=== PATIENT | female | born 1970 | race Caucasian/White ===

== ENCOUNTER → 2017-09-16 | Emergency (ER) | payer BC, OTHER ==
[~2017-09-16] VITALS: Ht 157.5 cm; Wt 123.4 kg
[~2017-09-16] MED LIST: ACETAMINOPHEN 500 MG TAB (TYLENOL) PO STA; ACHD5005 PO; ACYC400T PO; LD5O35 TP; LEVO112T55 PO; LITH300T3 PO; METF500T4 PO; METR500T21 PO; OLAN1CAP PO; PRAV40TA2 PO
--- NOTE | 2017-09-16 16:58 | ED GU-Female ---
General Chief Complaint: -Female Stated Complaint: VAGINAL PAIN Source: patient Exam Limitations: no limitations History of Present Illness Date Seen by Provider: Sep 16, 2017 Time Seen by Provider: 16:35 Initial Comments Here with report of vaginal pain after vigorous sexual activity a few days ago. Denies discharge but states that it hurts to urinate. Seen at [facility] and started on Macrobid for dysuria and she is taking that as prescribed. Has not been taking any pain. She has been using diaper rash cream /powder. This has not helped specifically. Denies significant vaginal discharge. This is a stable partner. Timing/Duration: getting worse, other (a few days ago) Severity/Quality: burning Location: vaginal, urethral Radiation: none Activities at Onset: sexual activity Sexual Ono History: less than 2 months ago, single partner Modifying Factors: Worsens With Urinating Associated Symptoms: No dysuria, fever/chills Allergies and Home Medications Allergies Coded Allergies: No Allergy Information Available (Unverified , 06/30/16) Home Medications Levothyroxine Sodium 112 Mcg Tablet, 112 MCG PO DAILY, (Reported) Wever Carbonate 300 Mg Tablet, 600 MG PO BID, (Reported) Olanzapine/Fluoxetine HCl 1 Each Capsule, 1 EACH PO HS, (Reported) Pravastatin Sodium 40 Mg Tablet, 40 MG PO HS, (Reported) Constitutional: see HPI, fever EENTM: no symptoms reported Respiratory: no symptoms reported Cardiovascular: no symptoms reported Genitourinary: see HPI, burning, pain Psychiatric/Neurological: No Symptoms Reported Past Evbyndd-Itvxst-Vyrxcp Hx Patient Social History Alcohol Use: Denies Use Recreational Drug Use: No Smoking Status: Never a Smoker Former Smoker, Quit: Jul 07, 1996 Recent Foreign Travel: No Contact w/Someone Who Travel: No Surgeries History of Surgeries: Yes Surgeries: Abdominal, Orthopedic Respiratory History of Respiratory Disorde: No Cardiovascular History of Cardiac Disorders: No Neurological History of Neurological Disord: No Endocrine History of Endocrine Disorders: Yes Endocrine Disorders: Hypothyroidsim, Diabetes, Non-Insulin dep Reviewed Nursing Assessment Reviewed/Agree w Nursing PMH: Yes Physical Exam Vital Signs Capillary Refill : General Appearance: WD/WN, mild distress (pain related) Cardiovascular: regular rate, rhythm, no murmur Respiratory: lungs clear, normal breath sounds Pelvic: other (perivaginal area reddened. Introitus area and labia reddened. Question small tear superiorly at the vaginal opening. Very tender on palpation.) Neurologic/Psychiatric: alert, oriented x 3 Skin: normal color, warm/dry Progress/Results/Core Measures Suspected Sepsis SIRS Temperature: Pulse: Respiratory Rate: Blood Pressure / Mean: Results/Orders My Orders Orders - KANU GUPTA MD Acetaminophen Tablet (Tylenol Tablet) (09/16/17 16:48) Vital Signs/I&O Capillary Refill : Progress Note : Progress Note Seen and evaluated. Unable to do complete pelvic exam as patient is very tender. There does appear to be a small tear. Tylenol 500 mg by mouth. We will initiate Flagyl. I will prescribe pain medicine due to the significant irritation. Discussed outpatient options. Discharged home with return precautions. Patient verbalize understanding instructions and agreement with plan. Departure Impression Impression: Primary Impression: Superficial injury of vagina without infection Qualified Codes: S30.95XA - Unspecified superficial injury of vagina and vulva , initial encounter Disposition: HOME, SELF-CARE Condition: Stable Departure-Patient Inst. Decision time for Depature: 17:02 Referrals: MACARIO AG MD (PCP/Family) Primary Care Physician Patient Instructions: Dyspareunia (Painful Sex) Add. Discharge Instructions: All discharge instructions reviewed with patient and/or family. Voiced understanding. You appear to have irritation to the vaginal tissue. You may use topical anesthetic such as Vagisil and you may also vincent with the tissue with ointment such as Vaseline. You may take pain medicine prescribed as needed for pain. If you're not taking the prescribed pain medicine you may take Tylenol ( acetaminophen) 1000 mg every 6 hours as needed for pain. To not take both prescribed pain medicine and the Tylenol/acetaminophen at the same time as they both have acetaminophen in them. If you're having difficulty with urination, you may urinate while showering or with running water flowing over the vaginal area which will decrease the burning sensation. Follow-up with your doctor next week for recheck and further evaluation. Return for worse pain, fever, vomiting, weakness, breathing problems or other concerns as needed. Scripts Metronidazole (Metronidazole) 500 Mg Tablet 500 MG PO BID, #14 TAB 0 Refills Prov: KANU GUPTA MD 09/16/17 Hydrocodone Bit/Acetaminophen (Hydrocodone/Acetaminophen 5/325mg Tablet) 1 Tab Tab 1 EACH PO Q6H Y for PAIN-MODERATE, #15 TAB 0 Refills Prov: KANU GUPTA MD 09/16/17 KANU GUPTA MD Sep 16, 2017 16:58
[2017-09-16 17:20] VITALS: BP 115/80
== END | disposition home or self-care (01) ==
LOC: EDUNIT# 16:08 → ER 16:10
DX: S30.95XA Unspecified superficial injury of vagina and vulva, initial encounter (principal); E03.9 Hypothyroidism, unspecified; E11.9 Type 2 diabetes mellitus without complications; Z87.891 Personal history of nicotine dependence; Z98.890 Other specified postprocedural states; X58.XXXA Exposure to other specified factors, initial encounter
CPT/HCPCS: 99283

== ENCOUNTER 2017-09-19 08:35 | Emergency (ER) | payer BC ==
[~2017-09-19] VITALS: Ht 157.5 cm; Wt 113.9 kg
[~2017-09-19 08:35] MED LIST changes: -ACETAMINOPHEN 500 MG TAB (TYLENOL) PO STA; -ACYC400T PO; -LD5O35 TP
[2017-09-19] MEDS ORDERED: LIDOCAINE UROJET 2% GEL 10 ML PKG ONE (10:08)
[2017-09-19] MEDS ORDERED: LIDOCAINE UROJET 2% GEL 10 ML PKG TOP ONE (10:30)
[2017-09-19] MEDS ORDERED: AZITHROMYCIN 250 MG TAB (ZITHROMAX) PO ONE (10:30)
[2017-09-19] MEDS ORDERED: LIDOCAINE 1% INJ 20 ML (XYLOCAINE) VIAL INJ ONE (10:30)
[2017-09-19] MEDS ORDERED: cefTRIAXone 1 GM (ROCEPHIN) VIAL IM ONE (10:30)
[2017-09-19] MEDS ORDERED: LIDOCAINE 1% INJ 50 ML (XYLOCAINE) VIAL ONE (10:33)
--- NOTE | 2017-09-19 11:12 | ED GU-Female ---
General Chief Complaint: -Female Stated Complaint: VAG INFECTION Nursing Triage Note: ARRIVED VIA AMB TO ROOM 09. WAS SEEN ON TUESDAY AFTER ROUGH SEX AND CONTINUES TO HAVE PAIN. STATES SHE FEELS LIKE SOMETHING IS UP HER VAGINA THAT IS EXPANDING BUT STATES NOTHING FOREIGN WAS PUT INSIDE. WANTS A FULL EXAM. STATES THE PAIN MED THAT WAS PRESCRIBED IS NOT HELPING. Nursing Sepsis Screen: No Definite Risk Source: patient Exam Limitations: no limitations History of Present Illness Date Seen by Provider: Sep 19, 2017 Time Seen by Provider: 09:00 Initial Comments This 47-year-old woman presents to the emergency room with complaints of pelvic pain after having rough intercourse several days ago. She is having continuous mild bleeding and pain is persistent. Her last menstrual period was about 2 months ago. She has been told she cannot get due to endometriosis and PCOS. She has odor and a clear pink discharge. Her labia feel swollen. Her fianc is a new partner to her with whom she has been sexually active for about 4 months. Allergies and Home Medications Allergies Coded Allergies: Sulfa (Sulfonamide Antibiotics) (Verified Allergy, Severe, hives, 09/19/17) Home Medications Acyclovir 400 Mg Tablet, 400 MG PO TID, #30 Prescribed by: MARIA ALEJANDRA RAHMAN on 09/19/17 1115 Hydrocodone Bit/Acetaminophen 1 Tab Tab, 1 EACH PO Q6H PRN for PAIN-MODERATE, # 15 Ref 0 Prescribed by: KANU GUPTA on 09/16/17 1707 Levothyroxine Sodium 112 Mcg Tablet, 112 MCG PO DAILY, (Reported) Lidocaine HCl 35 Gm Oint, 35 GM TP QID PRN for PAIN-MODERATE TO SEVERE, #1 May substitute 60 ML bottle viscous lidocaine Prescribed by: MARIA ALEJANDRA RAHMAN on 09/19/17 1115 Mcewen Carbonate 300 Mg Tablet, 600 MG PO BID, (Reported) Metronidazole 500 Mg Tablet, 500 MG PO BID, #14 Ref 0 Prescribed by: KANU GUPTA on 09/16/17 1707 Olanzapine/Fluoxetine HCl 1 Each Capsule, 1 EACH PO HS, (Reported) Pravastatin Sodium 40 Mg Tablet, 40 MG PO HS, (Reported) Constitutional: no symptoms reported EENTM: no symptoms reported Respiratory: no symptoms reported Cardiovascular: no symptoms reported Gastrointestinal: no symptoms reported Genitourinary: see HPI : No Musculoskeletal: no symptoms reported Skin: see HPI Psychiatric/Neurological: No Symptoms Reported Endocrine: No Symptoms Reported Past Bpwwuef-Wdpwft-Okkgkp Hx Patient Social History Alcohol Use: Denies Use Recreational Drug Use: No Former Smoker, Quit: Jul 07, 1996 2nd Hand Smoke Exposure: No Recent Foreign Travel: No Contact w/Someone Who Travel: No Recent Infectious Disease Expo: No Recent Hopitalizations: No Immunizations Up To Date Tetanus Booster (TDap): Less than 5yrs Surgeries History of Surgeries: Yes Surgeries: Abdominal, Orthopedic Respiratory History of Respiratory Disorde: No Cardiovascular History of Cardiac Disorders: No Neurological History of Neurological Disord: No Reproductive System : No Female Reproductive Disorders: Endometriosis, Polycystic Ovarian Dis Genitourinary History of Genitourinary Disor: No Gastrointestinal History of Gastrointestinal Di: No Musculoskeletal History of Musculoskeletal Dis: No Endocrine History of Endocrine Disorders: Yes Endocrine Disorders: Hypothyroidsim, Diabetes, Non-Insulin dep HEENT History of HEENT Disorders: No Cancer History of Cancer: No Psychosocial History of Psychiatric Problem: Yes Behavioral Health Disorders: Bipolar, Depression Physical Exam Vital Signs Vital Signs - First Documented 09/19/17 08:40 Temp 98.0 Pulse 86 Resp 18 B/P (MAP) 137/93 (108) Pulse Ox 96 O2 Delivery Room Air Capillary Refill : Less Than 3 Seconds General Appearance: no apparent distress, mild distress HEENT: normal ENT inspection Respiratory: no respiratory distress Gastrointestinal: non tender, soft Genital/Rectal: other (Labia are swollen and edematous bilaterally with widespread shallow ulcerations. The entire genital area is very tender to the touch. 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, no motor/sensory deficits, alert, normal mood/affect, oriented x 3 Skin: normal color, warm/dry, other (See above) Progress/Results/Core Measures Suspected Sepsis Recent Fever Within 48 Hours: No Infection Criteria Present: None New/Unexplained Altered Menta: No Sepsis Screen: No Definite Risk Sepsis Diagnosis: SIRS Temperature:98.0 Pulse: 86 Respiratory Rate: 18 Blood Pressure 137 /93 Mean: 108 Results/Orders Lab Results Laboratory Tests Test 09/19/17 10:24 Range/Units Micro Results Microbiology 09/19/17 Genital Culture - Preliminary, Resulted No growth 09/19/17 ARIEL Preparation - Final, Resulted 09/19/17 Wet Prep - Final, Resulted My Orders Orders - MARIA ALEJANDRA CLAROS MD Wet Prep (09/19/17 09:18) Neisseria Gonorrhea Dna (09/19/17 09:18) Chlamydia Dna (09/19/17 09:18) Genital Culture (09/19/17 09:18) Ariel Prep (09/19/17 09:18) Lidocaine 2% (Urojet) (Xylocaine Urojet) (09/19/17 10:08) Herpes Simplex Culture (09/19/17 10:20) Lidocaine 2% (Urojet) (Xylocaine Urojet) (09/19/17 10:30) Ceftriaxone Injection (Rocephin Injectio (09/19/17 10:30) Lidocaine 1% Injection (Xylocaine 1% Inj (09/19/17 10:30) Azithromycin Tablet (Zithromax Tablet) (09/19/17 10:30) Lidocaine 1% (Xylocaine 1%) (09/19/17 10:33) Medications Given in ED Vital Signs/I&O Capillary Refill : Less Than 3 Seconds Blood Pressure Mean: 108 Progress Note : Progress Note Patient's history and a genital exam is consistent with primary HSV outbreak. STD screening was performed with a vaginal culture, GC and chlamydia screening, and viral culture. Exam with speculum could not be performed as patient could not tolerate the pain even after topical lidocaine was applied and Urojet was injected into the vaginal opening. Specimens were therefore vaginal swabs instead of cervical swabs. Patient was empirically treated with Rocephin and azithromycin. Patient was unable to urinate for us in the emergency room. Departure Impression Impression: Primary Impression: Genital herpes Qualified Codes: A60.04 - Herpesviral vulvovaginitis Additional Impression: Vaginitis Qualified Codes: N76.0 - Acute vaginitis Disposition: 01 HOME, SELF-CARE Condition: Improved Departure-Patient Inst. Decision time for Depature: 11:05 Referrals: MACARIO AG MD (PCP/Family) Primary Care Physician Patient Instructions: Genital Herpes Add. Discharge Instructions: Use your acyclovir as prescribed. You may use the lidocaine gel topically to numb the burning. Follow-up with Dr. Ag in 1-2 weeks. Review your final vaginal cultures with her at that time. Return to care sooner if you are having worsening symptoms or other problems. Complete vaginal rest including abstaining from intercourse, use of tampons, etc. until you are cleared by Dr. Ag. All discharge instructions reviewed with patient and/or family. Voiced understanding. Scripts Lidocaine HCl (Lidocaine) 35 Gm Oint 35 GM TP QID Y for PAIN-MODERATE TO SEVERE, #1 TUBE May substitute 60 ML bottle viscous lidocaine Prov: MARIA ALEJANDRA CLAROS MD 09/19/17 Acyclovir (Acyclovir) 400 Mg Tablet 400 MG PO TID, #30 TAB Prov: MARIA ALEJANDRA CLAROS MD 09/19/17 Copy Copies To 1: MACARIO AG MD, JOSHUA T MD Sep 19, 2017 11:11
[2017-09-19] MEDS ORDERED: LD5O35 TP (11:15)
[2017-09-19] MEDS ORDERED: ACYC400T PO (11:15)
[2017-09-19 11:21] VITALS: BP 137/93
== END 2017-09-19 11:21 | disposition home or self-care (01) ==
LOC: EDUNIT# 08:35 → ER 08:37
DX: A60.04 Herpesviral vulvovaginitis (principal); F41.9 Anxiety disorder, unspecified; F32.9 Major depressive disorder, single episode, unspecified; E03.9 Hypothyroidism, unspecified; E11.9 Type 2 diabetes mellitus without complications; Z87.891 Personal history of nicotine dependence; Z88.2 Allergy status to sulfonamides
CPT/HCPCS: 36415; 87070; 87210; 87254; 87491; 87591; 99284

== ENCOUNTER 2021-05-11 06:05 | Emergency (ER) | payer OTHER ==
[~2021-05-11] VITALS: Ht 158 cm; Wt 127.0 kg
[~2021-05-11 06:05] MED LIST changes: +ACYC400T21 PO; +LD5O35 TP; +METF-397 PO; -METF500T4 PO; +METR-145 PO; -METR500T21 PO
[2021-05-11] MEDS ORDERED: LEVO175T58 (06:14)
[2021-05-11] MEDS ORDERED: LACTATED RINGERS 1,000 ML IV ONE (06:15)
[2021-05-11] MEDS ORDERED: ONDANSETRON 4 MG/2 ML (SDV) Z0FRAN IVP ONE ×2 (06:15→07:45)
--- NOTE | 2021-05-11 06:20 | ED Abdominal Pain ---
General Chief Complaint: Abdominal/GI Problems Stated Complaint: ABD PAIN Source of Information: Patient History of Present Illness Date Seen by Provider: May 11, 2021 Time Seen by Provider: 06:04 Initial Comments PT ARRIVES VIA EMS FROM HOME C/O RIGHT SIDED ABDOMINAL PAIN SINCE 2300 LAST PM PAIN IS CONSTANT NO RADIATION OF PAIN HAS HAD NAUSEA, NO VOMITING HAS BEEN CONSTIPATED, HAD A BM AT 0100 THIS AM LAST VOID WAS 1999 LAST PM, BUT DID NOT HAVE PAIN WITH URINATION NO FEVER TOOK TYLENOL AT 0200 AND IT HELPED EMS GAVE 100 MCG FENTANYL AND 4 MG ZOFRAN LMP --END OF , HAS IUD IN PLACE PT HAS HAD X 1 AND GASTRIC BYPASS SURGERY DENIES PRIOR ABDOMINAL PAIN OR GI PROBLEMD DENIES ANY CHRONIC ILLNESSES AND ONLY TAKES ANTI-DEPRESSANT 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: 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 [place] Allergies and Home Medications Allergies Coded Allergies: Sulfa (Sulfonamide Antibiotics) (Verified Allergy, Unknown, 05/11/21) Patient Home Medication List Home Medication List Reviewed: Yes Hydrocodone Bit/Acetaminophen (HYDROcodone/APAP 7.5/325 TAB) 1 Ea Tablet, 1 EA PO Q4-6 PRN for PAIN Prescribed by: RICHY MACK on 05/11/21745 Ketorolac Tromethamine (Ketorolac Tromethamine) 10 Mg Tablet, 10 MG PO Q6H Prescribed by: RICHY MACK on 05/11/21745 Levofloxacin (Levofloxacin) 500 Mg Tablet, 500 MG PO DAILY Prescribed by: RICHY MACK on 05/11/21745 Levothyroxine Sodium (Euthyrox) 175 Mcg Tablet, (Reported) Entered as Reported by: ANUPAMA BERMAN on 05/11/21613 Last Action: New Order Ondansetron (Ondansetron Odt) 8 Mg Tab.rapdis, 8 MG PO Q4H PRN for NAUSEA/VOMITING Prescribed by: RICHY MACK on 05/11/21745 Tamsulosin HCl (Flomax) 0.4 Mg Cap, 0.4 MG PO DAILY Prescribed by: RICHY MACK on 05/11/21745 Review of Systems Review of Systems Constitutional: no symptoms reported Respiratory: No Symptoms Reported Cardiovascular: No Symptoms Reported Gastrointestinal: See HPI, Abdominal Pain, Constipated, Nausea; Denies Vomiting Genitourinary: No Symptoms Reported; Denies Burning, Denies Flank Pain Musculoskeletal: no symptoms reported; No back pain Skin: no symptoms reported; No rash Psychiatric/Neurological: No Symptoms Reported Endocrine: No Symptoms Reported Hematologic/Lymphatic: No Symptoms Reported Past Wjqrsem-Epbikq-Estmlz Hx Patient Social History Tobacco Use?: Yes Smoking Status: Former Smoker Substance use?: Yes Substance type: Marijuana Additional substance use comme: THC IN PAST Alcohol Use?: Yes Immunizations Up To Date Second COVID19 Vaccination Rayshawn: AUGUST 2020 COVID19 Vaccine Cable 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: Prepair Past Medical History Surgery/Hospitalization HX: GASTRIC BYPASS--DONE IN [place] X 1 Surgeries: Yes Abdominal, Section Respiratory: No Cardiac: No Neurological: No : No Reproductive Disorders: 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 oz. 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, no motor/sensory deficits, alert, normal mood/affect, oriented x 3 Skin: normal color, warm/dry; No rash Progress/Results/Core Measures Results/Orders Lab Results Laboratory Tests Test 05/11/21 06:11 05/11/21 06:42 Range/Units White Blood Count 8.2 4.3-11.0 10^3/uL Red Blood Count 4.68 3.80-5.11 10^6/uL Hemoglobin 13.3 11.5-16.0 g/dL Hematocrit 41 35-52 % Mean Corpuscular Volume 87 80-99 fL Mean Corpuscular Hemoglobin 28 25-34 pg Mean Corpuscular Hemoglobin Concent 33 32-36 g/dL Red Cell Distribution Width 12.9 10.0-14.5 % Platelet Count 295 130-400 10^3/uL Mean Platelet Volume 10.5 9.0-12.2 fL Immature Granulocyte % (Auto) 1 % Neutrophils (%) (Auto) 50 42-75 % Lymphocytes (%) (Auto) 41 12-44 % Monocytes (%) (Auto) 7 0-12 % Eosinophils (%) (Auto) 2 0-10 % Basophils (%) (Auto) 1 0-10 % Neutrophils # (Auto) 4.1 1.8-7.8 10^3/uL Lymphocytes # (Auto) 3.3 1.0-4.0 10^3/uL Monocytes # (Auto) 0.6 0.0-1.0 10^3/uL Eosinophils # (Auto) 0.1 0.0-0.3 10^3/uL Basophils # (Auto) 0.1 0.0-0.1 10^3/uL Immature Granulocyte # (Auto) 0.1 0.0-0.1 10^3/uL Sodium Level 135 135-145 MMOL/L Potassium Level 4.3 3.6-5.0 MMOL/L Chloride Level 105 98-107 MMOL/L Carbon Dioxide Level 16 L 21-32 MMOL/L Anion Gap 14 5-14 MMOL/L Blood Urea Nitrogen 11 7-18 MG/DL Creatinine 0.79 0.60-1.30 MG/DL Estimat Glomerular Filtration Rate 77 BUN/Creatinine Ratio 14 Glucose Level 136 H 70-105 MG/DL Calcium Level 9.2 8.5-10.1 MG/DL Corrected Calcium 9.0 8.5-10.1 MG/DL Magnesium Level 2.0 1.6-2.4 MG/DL Total Bilirubin 0.8 0.1-1.0 MG/DL Aspartate Amino Transf (AST/SGOT) 28 5-34 U/L Alanine Aminotransferase (ALT/SGPT) 26 0-55 U/L Alkaline Phosphatase 73 40-136 U/L Total Protein 7.6 6.4-8.2 GM/DL Albumin 4.3 3.2-4.5 GM/DL Amylase Level 47 25-125 U/L Lipase 28 8-78 U/L Serum Test, Qualitative NEGATIVE NEGATIVE Urine Color YELLOW Urine Clarity CLEAR Urine pH 6.5 5-9 Urine Specific [place] 1.020 1.016-1.022 Urine Protein TRACE H NEGATIVE Urine Glucose (UA) NEGATIVE NEGATIVE Urine Ketones 1+ H NEGATIVE Urine Nitrite NEGATIVE NEGATIVE Urine Bilirubin NEGATIVE NEGATIVE Urine Urobilinogen 1.0 < = 1.0 MG/DL Urine Leukocyte Esterase 1+ H NEGATIVE Urine RBC (Auto) 3+ H NEGATIVE Urine RBC 25-50 H /HPF Urine WBC 0-2 /HPF Urine Squamous Epithelial Cells 5-10 /HPF Urine Crystals NONE /LPF Urine Bacteria NEGATIVE /HPF Urine Casts NONE /LPF Urine Mucus NEGATIVE /LPF Urine Culture Indicated NO My Orders Orders - RICHY MACK DO Ed Iv/Invasive Line Start (05/11/21 06:12) Monitor-Rhythm Ecg Trace Only (05/11/21 06:12) Amylase (05/11/21 06:12) Cbc With Automated Diff (05/11/21 06:12) Comprehensive Metabolic Panel (05/11/21 06:12) Hcg,Qualitative Serum (05/11/21 06:12) Lipase (05/11/21 06:12) Magnesium (05/11/21 06:12) Ua Culture If Indicated (05/11/21 06:12) Ed Iv/Invasive Line Start (05/11/21 06:12) Lactated Ringers (Lr 1000 Ml Iv Solution (05/11/21 06:15) Ondansetron Injection (Zofran Injectio (05/11/21 06:15) Fentanyl Inj (Sublimaze Injection) (05/11/21 06:27) Hyoscyamine Sl Tablet (Levsin Sl Tablet) (05/11/21 06:30) Acute Abd Series (05/11/21 06:44) Ct Abd/Pelv W (Appendicitis) (05/11/21 06:44) Iohexol Injection (Omnipaque 350 Mg/Ml 1 (05/11/21 07:15) Received Contrast (Hold Metformin- Contr (05/11/21 07:15) Sodium Chloride Flush (Catheter Flush Sy (05/11/21 07:15) Ns (Ivpb) (Sodium Chloride 0.9% Ivpb Bag (05/11/21 07:15) Ketorolac Injection (Toradol Injection) (05/11/21 07:30) Tamsulosin Capsule (Flomax Capsule) (05/11/21 07:30) Ondansetron Injection (Zofran Injectio (05/11/21 07:45) Promethazine Injection (Phenergan Injec (05/11/21 08:00) Medications Given in ED Current Medications Medications Dose Ordered Sig/Crystal Route Start Time Stop Time Status Last Admin Dose Admin Hyoscyamine Sulfate 0.25 mg ONCE ONCE PO 05/11/21 06:30 05/11/21 06:31 DC 05/11/21 06:36 0.25 MG Iohexol 100 ml ONCE ONCE IV 05/11/21 07:15 05/11/21 07:16 DC 05/11/21 07:17 100 ML Ketorolac Tromethamine 30 mg ONCE ONCE IVP 05/11/21 07:30 05/11/21 07:31 DC 05/11/21 07:39 30 MG Lactated Ringer's 1,000 ml @ 0 mls/hr Q0M ONCE IV 05/11/21 06:15 05/11/21 06:16 DC 05/11/21 06:25 0 MLS/HR Ondansetron HCl 4 mg ONCE ONCE IVP 05/11/21 06:15 05/11/21 06:16 DC 05/11/21 06:25 4 MG Ondansetron HCl 8 mg ONCE ONCE IVP 05/11/21 07:45 05/11/21 07:46 DC 05/11/21 07:44 8 MG Sodium Chloride 10 ml NEEDED PRN IV 05/11/21 07:15 05/11/21 07:18 10 ML Sodium Chloride 100 ml ONCE ONCE IV 05/11/21 07:15 05/11/21 07:16 DC 05/11/21 07:17 80 ML Vital Signs/I&O 05/11/21 05/11/21 06:05 08:27 Temp 36.6 Pulse 75 66 Resp 18 18 B/P (MAP) 151/83 (105) 152/89 Pulse Ox 99 98 O2 Delivery Room Air Room Air Progress Progress Note : Progress Note GIVEN IV FLUIDS, ZOFRAN, FENTANYL, TORADOL AND FLOMAX FEELING MUCH BETTER AT DISMISSAL--SYMPTOMS RESOLVED Diagnostic Imaging Comments ABDOMEN XRAYS--PER RADIOLOGIST REPORT AT 0728 Findings: Acute abdominal series demonstrates some mild constipation. There is no free air or obstruction. Vascular clips are seen in the left upper quadrant and left midabdomen. There is an IUD within the uterus. The lungs are clear. There is no pneumothorax. The heart is normal. Impression: 1. Constipation without obstruction or free air. 2. Normal chest. CT ABDOMEN/PELVIS--PER RADIOLOGIST REPORT AT 0728 There is mild groundglass density seen in the visualized lung bases with mild mosaic pattern. There has been gastric bypass procedure with mild hiatal hernia noted. There are stones in the dependent portion of the gallbladder lumen. No evidence of biliary ductal dilatation. No pancreatic, adrenal gland or splenic lesion is noted. Left kidney is unremarkable. There is mild right hydronephrosis and right hydroureter. There is umbilical herniation of fat. Note is made of 0.5 cm calculus in the distal right ureter. No bladder stone is seen. There is no evidence of appendiceal inflammation. Intrauterine device appears to be in good position. IMPRESSION: Least partially obstructing 0.5 cm calculus in the distal right ureter resulting in mild right hydronephrosis and hydroureter. Mosaic pattern of groundglass density in the lung bases may represent pneumonitis. Areas of air trapping are suspected. Reviewed: Reviewed by Me Departure Impression Primary Impression: Right distal ureteral calculus Additional Impressions: Constipation POSSIBLE PNEUMONITIS Cholelithiasis Disposition: HOME, SELF-CARE Condition: Improved Departure-Patient Inst. Decision time for Depature: 07:30 Referrals: SHERIE SUÁREZ ELIAS A MD Patient Instructions: Kidney Stones (DC), Constipation in Adults, Gallstones ED Add. Discharge Instructions: LOTS OF CLEAR LIQUIDS TAKE MIRALAX DAILY--YOU MAY USE EVERY 1-2 HOURS UNTIL YOUR STOOLS ARE CLEAR, THEN USE ONCE A DAY STRAIN ALL URINE--RETURN ANY STONES TO DR. MARIA'S OFFICE FOLLOW UP WITH DR. MARIA THIS WEEK FOR KIDNEY STONE FOLLOW UP WITH DR. SUÁREZ THIS WEEK FOR GALLSTONES RETURN TO ER IF SYMPTOMS WORSEN All discharge instructions reviewed with patient and/or family. Voiced understanding. Scripts Levofloxacin (Levofloxacin) 500 Mg Tablet 500 MG PO DAILY, #7 TAB Prov: RICHY MACK DO 05/11/21 Ondansetron (Ondansetron Odt) 8 Mg Tab.rapdis 8 MG PO Q4H PRN for NAUSEA/VOMITING, #10 TAB Prov: RICHY MACK DO 05/11/21 Tamsulosin HCl (Flomax) 0.4 Mg Cap 0.4 MG PO DAILY, #10 CAP Prov: RICHY MACK DO 05/11/21 Hydrocodone Bit/Acetaminophen (HYDROcodone/APAP 7.5/325 TAB) 1 Ea Tablet 1 EA PO Q4-6 PRN for PAIN, #20 TAB Prov: RICHY MACK DO 05/11/21 Ketorolac Tromethamine (Ketorolac Tromethamine) 10 Mg Tablet 10 MG PO Q6H for Pain, #15 TAB Prov: RICHY MACK DO 05/11/21 RICHY MACK DO May 11, 2021 06:20
[2021-05-11 06:26] LABS: BASOPHILS # (AUTO) 0.1 10^3/uL (0.0-0.1); BASOPHILS % (AUTO) 1 % (0-10); EOSINOPHILS # (AUTO) 0.1 10^3/uL (0.0-0.3); EOSINOPHILS % (AUTO) 2 % (0-10); HEMATOCRIT 41 % (35-52); HEMOGLOBIN 13.3 g/dL (11.5-16.0); LYMPHOCYTES # (AUTO) 3.3 10^3/uL (1.0-4.0); LYMPHOCYTES % (AUTO) 41 % (12-44); MEAN CORPUSCULAR HEMOGLOBIN 28 pg (25-34); MEAN CORPUSCULAR HGB CONC 33 g/dL (32-36); MEAN CORPUSCULAR VOLUME 87 fL (80-99); MEAN PLATELET VOLUME 10.5 fL (9.0-12.2); MONOCYTES # (AUTO) 0.6 10^3/uL (0.0-1.0); MONOCYTES % (AUTO) 7 % (0-12); NEUTROPHILS # (AUTO) 4.1 10^3/uL (1.8-7.8); NEUTROPHILS % (AUTO) 50 % (42-75); PLATELET COUNT 295 10^3/uL (130-400); WHITE BLOOD COUNT 8.2 10^3/uL (4.3-11.0)
[2021-05-11] MEDS ORDERED: fentaNYL INJ 100 MCG/2 ML AMP IVP STA (06:27)
[2021-05-11] MEDS ORDERED: HYOSCYAMINE 0.125 MG (LEVSIN) TAB PO ONE (06:30)
[2021-05-11 06:35] LABS: ALBUMIN 4.3 GM/DL (3.2-4.5); POTASSIUM 4.3 MMOL/L (3.6-5.0)
[2021-05-11 06:36] LABS: CALCIUM 9.2 MG/DL (8.5-10.1)
[2021-05-11 06:38] LABS: TOTAL PROTEIN 7.6 GM/DL (6.4-8.2)
[2021-05-11 06:39] LABS: BILIRUBIN,TOTAL 0.8 MG/DL (0.1-1.0)
[2021-05-11 06:41] LABS: CREATININE SERUM 0.79 MG/DL (0.60-1.30)
[2021-05-11 06:53] LABS: BILIRUBIN,URINE NEGATIVE (NEGATIVE); CLARITY,URINE CLEAR; COLOR,URINE YELLOW; GLUCOSE, URINE (UA) NEGATIVE (NEGATIVE); KETONES,URINE 1+ (NEGATIVE); LEUKOCYTE ESTERASE ,URINE 1+ (NEGATIVE); NITRITE,URINE NEGATIVE (NEGATIVE); PH,URINE 6.5 (5-9); PROTEIN,URINE TRACE (NEGATIVE)
[2021-05-11 07:03] LABS: BACTERIA,URINE NEGATIVE /HPF; RBC,URINE 25-50 /HPF; WBC,URINE 0-2 /HPF
--- NOTE | 2021-05-11 07:13 | Diagnostic Imaging Report ---
Indication: Abdominal and chest pain, shortness of breath. Comparison: None Findings: Acute abdominal series demonstrates some mild constipation. There is no free air or obstruction. Vascular clips are seen in the left upper quadrant and left midabdomen. There is an IUD within the uterus. The lungs are clear. There is no pneumothorax. The heart is normal. Impression: 1. Constipation without obstruction or free air. 2. Normal chest. Dictated by: Dictated on workstation # [id number]
[2021-05-11] MEDS ORDERED: CATHETER FLUSH 10 ML SYR IV PRN (07:15)
[2021-05-11] MEDS ORDERED: NS 100 ML (IVPB) BAG IV ONE (07:15)
[2021-05-11] MEDS ORDERED: HOLD METFORMIN - RECEIVED CONTRAST 20 ML VIAL IV SCH (07:15)
[2021-05-11] MEDS ORDERED: IOHEXOL 350 MG/ML 100 ML (OMNIPAQUE 350) VIAL IV ONE (07:15)
--- NOTE | 2021-05-11 07:22 | Diagnostic Imaging Report ---
PROCEDURE: CT abdomen and pelvis with contrast, rule out appendicitis. TECHNIQUE: Multiple contiguous axial images were obtained through the abdomen and pelvis after the administration of intravenous contrast. All CT scans use one or more of the following dose optimizing techniques: automated exposure control, MA and/or KvP adjustment based on patient size and exam type or iterative reconstruction. INDICATION: Right flank pain There is mild groundglass density seen in the visualized lung bases with mild mosaic pattern. There has been gastric bypass procedure with mild hiatal hernia noted. There are stones in the dependent portion of the gallbladder lumen. No evidence of biliary ductal dilatation. No pancreatic, adrenal gland or splenic lesion is noted. Left kidney is unremarkable. There is mild right hydronephrosis and right hydroureter. There is umbilical herniation of fat. Note is made of 0.5 cm calculus in the distal right ureter. No bladder stone is seen. There is no evidence of appendiceal inflammation. Intrauterine device appears to be in good position. IMPRESSION: Least partially obstructing 0.5 cm calculus in the distal right ureter resulting in mild right hydronephrosis and hydroureter. Mosaic pattern of groundglass density in the lung bases may represent pneumonitis. Areas of air trapping are suspected. Dictated by: Dictated on workstation # [id number]
[2021-05-11] MEDS ORDERED: TAMSULOSIN 0.4 MG (FLOMAX) CAP PO SCH (07:30)
[2021-05-11] MEDS ORDERED: KETOROLAC 30 MG/ML VIAL IVP ONE (07:30)
[2021-05-11] MEDS ORDERED: TMSL.4C PO (07:46)
[2021-05-11] MEDS ORDERED: LEVO500T80 PO (07:46)
[2021-05-11] MEDS ORDERED: KETO10TA PO (07:46)
[2021-05-11] MEDS ORDERED: ONDA8TAB13 PO (07:46)
[2021-05-11] MEDS ORDERED: HYDR-34 PO (07:46)
[2021-05-11] MEDS ORDERED: PROMETHAZINE INJ 25 MG/ML (PHENERGAN) AMP IVP ONE (08:00)
[2021-05-11 08:27] VITALS: BP 152/89
== END 2021-05-11 08:20 | disposition home or self-care (01) ==
LOC: MERGE 06:08 → ER 06:08
DX: N13.2 Hydronephrosis with renal and ureteral calculous obstruction (principal); K59.00 Constipation, unspecified; K80.20 Calculus of gallbladder without cholecystitis without obstruction; E66.01 Morbid (severe) obesity due to excess calories; Z87.891 Personal history of nicotine dependence
CPT/HCPCS: 36415; 74022; 74177; 80053; 81000; 82150; 83690; 83735; 84703; 85025; 93041

== ENCOUNTER → 2021-05-15 | Outpatient (CLI) | payer BC, OTHER ==
[~2021-05-15] MED LIST changes: +HYDR-34 PO; +KETO10TA PO; +LEVO175T58; +LEVO500T80 PO; +ONDA8TAB13 PO; +TMSL.4C PO
--- NOTE | 2021-05-15 11:50 | Diagnostic Imaging Report ---
EXAMINATION: Supine abdomen at 9:27 a.m. INDICATION: Ureteral stone. Two views were obtained. The CT abdomen/pelvis exam performed on 05/11/2021 noted a 5 mm calculus in the distal right ureter. This was producing partial obstruction of the right collecting system. On this study there are two small calcific densities low in the pelvis on the right. One of these may correspond to the obstructive calculus seen on the CT abdomen/pelvis exam. There is no other pathological calcification identified. The IUD seen previously is again visualized. There is also gas in both the large and small bowel in a nonspecific fashion. IMPRESSION: 1. There are two small calculi overlying the low pelvis on the right. One of these may correspond to the obstructive calculus seen on the recent CT abdomen/pelvis exam. 2. There is no acute abnormality of the abdomen or pelvis noted otherwise. Dictated by: Dictated on workstation # [id number]
== END ==
LOC: RAD
PROVIDERS: ATTEND Urology
DX: N20.2 Calculus of kidney with calculus of ureter (principal)
CPT/HCPCS: 74018

== ENCOUNTER 2021-05-27 05:37 | Outpatient (CLI) | payer BC, OTHER ==
[~2021-05-27] VITALS: Ht 157.5 cm; Wt 125.0 kg
[~2021-05-27 05:37] MED LIST changes: -LEVO175T58; +LEVO175T58 PO
[2021-05-27] MEDS ORDERED: LAMO200T5 PO (16:57)
[2021-05-27] MEDS ORDERED: BUSP10TA95 PO (16:57)
[2021-05-27] MEDS ORDERED: CITA40TA11 PO (16:57)
[2021-05-27] MEDS ORDERED: MULT-1136 PO (16:57)
[2021-05-27] MEDS ORDERED: LEVO5TAB12 PO (16:57)
== END 2021-05-28 09:52 | disposition home or self-care (01) ==
LOC: PREOP 05:37
PROVIDERS: ATTEND Surgery
DX: Z01.818 Encounter for other preprocedural examination (principal)

== ENCOUNTER 2021-06-03 06:53 | Day surgery (SDC) | payer BC, OTHER ==
[2021-06-03] VITALS (11 sets, daily range): BP systolic 109–166; BP diastolic 60–93
[~2021-06-03] VITALS: Ht 157.5 cm; Wt 125.0 kg
[~2021-06-03 06:53] MED LIST changes: +BUSP10TA95 PO; +CITA40TA11 PO; +LAMO200T5 PO; +LEVO5TAB12 PO; +MULT-1136 PO; +ceFAZolin 2 GM IV Premixed 50 ML IV ONE
[2021-06-03] MEDS ORDERED: ceFAZolin 2 GM IV Premixed 50 ML ONE (07:03)
[2021-06-03] MEDS: LACTATED RINGERS 1,000 ML IV PRN ×3 (07:51→10:39)
--- NOTE | 2021-06-03 08:19 | Progress Note-Pre Operative ---
Pre-Operative Progress Note H&P Reviewed The H&P was reviewed, patient examined and no changes noted. Time Seen by Provider: 08:16 Date H&P Reviewed: Jun 03, 2021 Time H&P Reviewed: 08:16 Pre-Operative Diagnosis: Cholelithiasis/Cholecystitis SHERIE SUÁREZ DO Jun 03, 2021 08:19
[2021-06-03] MEDS ORDERED: LIDOCAINE/EPI 1%-1:100,000 (XYLOCAINE) 20ML ONE (08:25)
[2021-06-03] MEDS ORDERED: ONDANSETRON 4 MG/2 ML (SDV) Z0FRAN ONE ×2 (08:26→10:37)
[2021-06-03] MEDS ORDERED: GLYCOPYRROLATE 0.2 MG/ML (ROBINUL) 2 ML VIAL ONE (08:26)
[2021-06-03] MEDS ORDERED: NEOSTIGMINE 3 MG/3 ML VIAL ONE (08:26)
[2021-06-03] MEDS ORDERED: LIDOCAINE PF 2% 5 ML (XYLOCAINE) VIAL ONE (08:26)
[2021-06-03] MEDS ORDERED: ROCURONIUM 10 MG/ML 5 ML SYRINGE IV ONE (08:26)
[2021-06-03] MEDS ORDERED: proPOfol 200 MG/20 ML (DIPRIVAN) VIAL IV ONE (08:26)
[2021-06-03] MEDS ORDERED: fentaNYL INJ 100 MCG/2 ML AMP ONE ×2 (08:26→09:48)
[2021-06-03] MEDS ORDERED: MIDAZOLAM 2 MG/2 ML (VERSED) VIAL ONE (08:27)
[2021-06-03] MEDS ORDERED: SEVOFLURANE (ULTANE) 15 ML INHAL SOLN ONE (09:45)
[2021-06-03] MEDS ORDERED: morphine INJ 10 MG/ML 1ML (SYR OR VIAL) IVP ONE (10:15)
[2021-06-03] MEDS ORDERED: HYDROmorphone 2 MG/ML VIAL (DILAUDID) IV ONE (10:15)
[2021-06-03] MEDS ORDERED: morphine INJ 10 MG/ML 1ML (SYR OR VIAL) ONE (10:27)
--- NOTE | 2021-06-03 10:30 | Diagnostic Imaging Report ---
INDICATION: History of abdominal pain. Laparoscopic cholecystectomy. COMPARISON: None. TOTAL FLUOROSCOPY TIME: 20 seconds. TOTAL NUMBER OF FLUOROSCOPIC IMAGES SAVED: 42. FINDINGS: Multiple intraoperative image intensifier and digital subtraction views of the right upper abdominal quadrant were obtained and show contrast filling the intra and extrahepatic biliary ducts. There is emptying of contrast into the small bowel, as expected. There is no focal significant stenosis. No large intraluminal filling defect is identified. Please note, the interpreting radiologist was not present during the procedure. IMPRESSION: Fluoroscopic guidance was provided during intraoperative cholangiogram. Dictated by: Dictated on workstation # [id number]
[2021-06-03] MEDS: ONDANSETRON 4 MG/2 ML (SDV) Z0FRAN IVP PRN ×2 (10:39→10:46)
--- NOTE | 2021-06-03 11:04 | Progress Note-Post Operative ---
Post-Operative Progess Note Surgeon (s)/Project Product Manager (s) Surgeon SHERIE SUÁREZ DO Project Product Manager: Mayo Vila MSIII Pre-Operative Diagnosis Cholelithiasis/Cholecystitis Post-Operative Diagnosis same Procedure & Operative Findings Date of Procedure 06/03/21 Procedure Performed/Findings PROCEDURE: Laparoscopic cholecystectomy with intraoperative cholangiogram. COMPLICATIONS: None. PROCEDURE: The patient was taken to the operating suite and was prepped and draped in sterile fashion. A surgical pause was performed. Just superior to the umbilicus, a 12 mm incision was made. Dissection was taken down to the fascia, which was then scored and grasped with a Og and the abdomen was then entered. A 0 Vicryl suture was placed in a flllqm-zl-fikpc fashion and a Fang trocar was placed and secured. Pneumoperitoneum was achieved. A 5mm trochar place in the subxyphoid and 2 in the right upper quadrant. The gallbladder was then grasped and elevated. The cystic duct, and cystic artery were then dissected out. Clip was placed on the distal portion of the cystic duct which was then partially transected. An arrow catheter was inserted into the duct. The cholangiogram was then performed. No filing defects and contrast made its way into the duodenum. Catheter removed. Clips were placed on proximal portion of the cystic duct and then the duct was then transected. Clips were placed along the proximal and distal portion of the cystic artery which was then transected. Hook cautery was used to dissect the gallbladder from the gallbladder fossa achieving hemostasis. The gallbladder was placed in an Endobag and removed through the 12 mm trocar site. The abdomen was then reinspected. Copious amounts of irrigation were used to irrigate the abdomen and there were no signs of active bleeding. Hemostasis had been achieved. The 12 mm fascial defect was then closed with 0 Vicryl suture that had been placed in a cyfkkz-fk-ojrxa fashion. The abdomen was then desufflated, the trocars were removed. The abdomen was then washed and dried. The skin was then closed using 4-0 Monocryl in a subcuticular fashion. The abdomen was washed and dried and Skin Affix was place over incisions. Patient tolerated the procedure well without any complications and was taken to the recovery room in stable condition. Anesthesia Type GET Estimated Blood Loss Estimated blood loss (mL): less than 5ml Specimens/Packing Specimens Removed GB and contents SHERIE SUÁREZ 3, 2021 11:04
[2021-06-03] MEDS ORDERED: ACHYD1T PO (11:05)
--- NOTE | 2021-06-03 11:07 | Discharge Inst-Surgical ---
Discharge Inst-Surgical Depart Medication/Instructions New, Converted or Re-Newed RX: Transmitted to Pharmacy Patient Instructions Follow up Appt: Make appointment for 1 week. [phone] Instructions: No lifting greater than 20 pounds. No strenuous activity. May shower in 24 hours, no tub bath or soaking. Use incentive spirometer at home as directed. No Smoking Skin/Wound Care: May remove bandages in am. You need to leave the Dermabond on incision it will fall off on it's own. Symptoms to Report: Appetite Changes, Extremity Discoloration, Numbness/Tingling, Swelling Increased, Bleeding Excessive, Eyesight Changes, Pain Increased, Urine Color Change, Constipation(Persistent), Fever over 101 degree F, Pain/Pressure in chest, Urinating Difficulty, Cough Up/Vomit Blood, Heart Beat Irreg/Pounding, Pain/Pressure in jaw, Cramps in feet or legs, Lightheadedness, Pain/Pressure in shoulder, Diarrhea(Persistent), Memory Changes Suddenly, Questions/Concerns, Weight gain consecutive days, Dizziness/Fainting, Nausea/Vomiting, Shortness of Breath, Weight gain over 2 pounds If questions or concerns contact your physician Or seek help at emergency department. Activity Activity as Tolerated: Yes Activity Instructions: Avoid Stress to Incision Driving Instructions: No Driving/Refer to Dr. Morales Discharge Diet: Avoid Fatty Foods, Low Fat/Low Cholesterol If Any Problems/Questions/Issu: Contact Your Physician, Go to Emergency Room Skin/Wound Care Infection Signs and Symptoms: Increased Redness, Foul Odor of Wound, Increased Drainage, Skin Itchy or Has a Rash, Increased Swelling, Temperature Above 101 F Wound Care Comment: heating pad to shoulder or neck tonight for pain Bathing Instructions: Shower Stitches/Jesse/Dermabond Dis: Dermabond Ice Pack: Ice On and Off Site (as needed for pain at incisions) SHERIE SUÁREZ DO Jun 03, 2021 11:07
[2021-06-03] MEDS ORDERED: HYDROcodone/APAP 5 MG/325 MG (LORTAB) TAB PO ONE (11:30)
[2021-06-03] MEDS ORDERED: HYDROcodone/APAP 5 MG/325 MG (LORTAB) TAB ONE (11:33)
--- NOTE | 2021-06-03 13:00 | Anesthesia-General Post-Op ---
General Patient Condition Mental Status/LOC: Same as Preop Cardiovascular: Satisfactory Nausea/Vomiting: Absent Respiratory: Satisfactory Pain: Controlled Complications: Absent Post Op Complications Complications None Follow Up Care/Instructions Patient Instructions None needed. Anesthesia/Patient Condition Patient Condition Patient was seen after the procedure and she was doing well, no complaints, stable vital signs, no apparent adverse anesthesia problems. SIENNA ORTEGA DO Jun 03, 2021 13:00
== END 2021-06-03 12:55 | disposition home or self-care (01) ==
LOC: SDC 06:53
PROVIDERS: ATTEND Surgery
DX: K80.10 Calculus of gallbladder with chronic cholecystitis without obstruction (principal); I10 Essential (primary) hypertension; K29.50 Unspecified chronic gastritis without bleeding; E03.9 Hypothyroidism, unspecified; F41.9 Anxiety disorder, unspecified; F32.A Depression, unspecified; Z88.2 Allergy status to sulfonamides; Z88.6 Allergy status to analgesic agent; Z91.048 Other nonmedicinal substance allergy status; Z79.899 Other long term (current) drug therapy; Z79.890 Hormone replacement therapy; Z98.84 Bariatric surgery status; E66.01 Morbid (severe) obesity due to excess calories; Z68.43 Body mass index [BMI] 50.0-59.9, adult; Z11.2 Encounter for screening for other bacterial diseases
CPT/HCPCS: 76000; 84703; 87081

== ENCOUNTER 2021-09-15 13:18 | Emergency (ER) | payer BC ==
[~2021-09-15] VITALS: Ht 180 cm; Wt 117.0 kg
[~2021-09-15 13:18] MED LIST changes: +ACHYD1T PO; -CITA40TA11 PO; +CITA40TA13 PO; -LEVO500T80 PO; +LEVO500T81 PO; -ceFAZolin 2 GM IV Premixed 50 ML IV ONE
[2021-09-15] MEDS ORDERED: morphine INJ 10 MG/ML 1ML (SYR OR VIAL) IV STA (13:27)
[2021-09-15] MEDS ORDERED: ASPIRIN 81 MG CHEW (CHILDREN'S ASA) PO ONE (13:30)
--- NOTE | 2021-09-15 13:32 | ED Chest Pain ---
General Stated Complaint: CP, R ARM NUMBNESS Source: patient Exam Limitations: no limitations (TRAMAINE SARGENT) History of Present Illness Date Seen by Provider: Sep 15, 2021 Time Seen by Provider: 13:28 Initial Comments Patient is a 51-year-old female with a family cardiac history presents ED with pain in her right upper chest, right shoulder with numbness and tingling to right arm. She reports pressure in her right upper chest and shoulder over the past week. Appears to be worse with any type of movement. Started develop numbness and tingling heaviness in her right arm 1 hour ago. She saw her primary care physician yesterday was prescribed naproxen concerning for rotator cuff injury. She has mild shortness of breath without nausea vomiting, diarrhea. No recent travels. She did have her gallbladder removed 2 months ago. Denies of any urinary symptoms, headache, dizziness. No known cardiac history, history of asthma or COPD. Patient is otherwise healthy. Denies of any specific injury. Was recommended come to ED for any further change in symptoms. (TRAMAINE SARGENT) Allergies and Home Medications Allergies Coded Allergies: Sulfa (Sulfonamide Antibiotics) (Verified Allergy, Severe, hives, 09/19/17) bacitracin (Verified Allergy, Unknown, 05/28/21) neomycin (Verified Allergy, Unknown, 05/28/21) polymyxin B (Verified Allergy, Unknown, 05/28/21) tramadol (Verified Allergy, Unknown, 05/28/21) Patient Home Medication List Home Medication List Reviewed: Yes (TRAMAINE SARGENT) Buspirone HCl (Buspirone HCl) 10 Mg Tablet, 10 MG PO BID, (Reported) Entered as Reported by: TRACI CUBA on 05/27/211656 Citalopram Hydrobromide (Citalopram HBr) 40 Mg Tablet, 40 MG PO DAILY, (Reported) Entered as Reported by: TRACI CUBA on 05/27/211656 Hydrocodone Bit/Acetaminophen (HYDROcodone/APAP 10/325 TABLET) 1 Ea Tab, 1 TAB PO Q6H Prescribed by: SHERIE SUÁREZ on 06/03/21 1106 Hydrocodone/Acetaminophen (Hydrocodone-Acetamin 5-325 mg) 1 Each Tablet, 1 TAB PO Q4H PRN for PAIN-MODERATE (5-7) Prescribed by: SRI PAUL on 09/15/21 162 Lamotrigine (Lamotrigine) 200 Mg Tablet, 200 MG PO HS, (Reported) Entered as Reported by: TRACI CUBA on 05/27/211656 Levocetirizine Dihydrochloride (Levocetirizine Dihydrochloride) 5 Mg Tablet, 5 MG PO DAILY, (Reported) Entered as Reported by: TRACI CUBA on 05/27/211656 Levothyroxine Sodium (Euthyrox) 175 Mcg Tablet, 175 MCG PO DAILY, (Reported) Entered as Reported by: ANUPAMA BERMAN on 05/11/21 0614 Methylprednisolone (Methylprednisolone Dose Pack) 4 Mg Tab.ds.pk, 4 MG PO UD Prescribed by: SRI PAUL on 09/15/211619 Multivitamin (Multivitamin) 1 Each Tablet, 1 EACH PO DAILY, (Reported) Entered as Reported by: TRACI CUBA on 05/27/211656 Review of Systems Review of Systems Constitutional: No chills, No diaphoresis, No dizziness, No fever, No malaise EENTM: No Blurred Vision, No Double Vision, No Eye Pain, No Mouth Pain, No Throat Pain, No Throat Swelling Respiratory: Denies Cough, Denies SOA With Exertion, Denies SOA at Rest Cardiovascular: Chest Pain; Denies Edema, Denies Irregular Heart Rate, Denies Lightheadedness Gastrointestinal: Denies Abdomen Distended, Denies Abdominal Pain, Denies Difficulty Swallowing, Denies Nausea Genitourinary: Denies Burning Musculoskeletal: No back pain, No joint pain; muscle pain Skin: No change in color, No change in hair/nails (TRAMAINE SARGENT) All Other Systems Reviewed Negative Unless Noted: Yes (TRAMAINE SARGENT) Past Hxsfpwk-Ykmvlh-Zwxtou Hx Immunizations Up To Date Tetanus Booster (TDap): Unknown First/Initial COVID19 Vaccinat: 08/21 Second COVID19 Vaccination Rayshawn: AUGUST 2020 Third COVID19 Vaccination Date: 08/21 (TRAMAINE SARGENT) Seasonal Allergies Seasonal Allergies: No (TRAMAINE SARGENT) Past Medical History Surgery/Hospitalization HX: GASTRIC BYPASS--DONE IN [place] X 1 Surgeries: Yes (gastric bypass, carpal tunnel bilat, ) Abdominal, Section Respiratory: No Cardiac: No Neurological: No Reproductive Disorders: No Female Reproductive Disorders: Endometriosis, Polycystic Ovarian Dis 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 0.0oz. [id number]; 50.39 BMI Method:Stated General Appearance: No Apparent Distress, WD/WN HEENT: PERRL/EOMI, TMs Normal, Normal ENT Inspection, Pharynx Normal Neck: Full Range of Motion, Normal Inspection, Supple, Other (Right upper shoulder tenderness.) Respiratory: Chest Non Tender, Lungs Clear, Normal Breath Sounds, No Accessory Muscle Use, No Respiratory Distress Cardiovascular: Regular Rate, Rhythm, No Edema, No Gallop, No JVD, No Murmur Gastrointestinal: Normal Bowel Sounds, No Organomegaly, No Pulsatile Mass, Non Tender, Soft Extremity: Normal Capillary Refill, Other (Right upper trapezius tenderness. Pain with movement of the right shoulder. Coal Trimmer strength five five. Neurovascular intact.) Neurologic/Psychiatric: Alert, Oriented x3, No Motor/Sensory Deficits, Normal Mood/Affect Skin: Normal Color, Warm/Dry (TRAMAINE SARGENT) Progress/Results/Core Measures Results/Orders Lab Results Laboratory Tests Test 09/15/21 13:28 09/15/21 15:30 Range/Units White Blood Count 7.3 4.3-11.0 10^3/uL Red Blood Count 4.86 3.80-5.11 10^6/uL Hemoglobin 13.3 11.5-16.0 g/dL Hematocrit 42 35-52 % Mean Corpuscular Volume 87 80-99 fL Mean Corpuscular Hemoglobin 27 25-34 pg Mean Corpuscular Hemoglobin Concent 31 L 32-36 g/dL Red Cell Distribution Width 13.0 10.0-14.5 % Platelet Count 276 130-400 10^3/uL Mean Platelet Volume 10.5 9.0-12.2 fL Immature Granulocyte % (Auto) 0 % Neutrophils (%) (Auto) 46 42-75 % Lymphocytes (%) (Auto) 45 H 12-44 % Monocytes (%) (Auto) 6 0-12 % Eosinophils (%) (Auto) 2 0-10 % Basophils (%) (Auto) 1 0-10 % Neutrophils # (Auto) 3.4 1.8-7.8 10^3/uL Lymphocytes # (Auto) 3.3 1.0-4.0 10^3/uL Monocytes # (Auto) 0.4 0.0-1.0 10^3/uL Eosinophils # (Auto) 0.2 0.0-0.3 10^3/uL Basophils # (Auto) 0.0 0.0-0.1 10^3/uL Immature Granulocyte # (Auto) 0.0 0.0-0.1 10^3/uL Prothrombin Time 12.8 12.2-14.7 SEC INR Comment 0.9 0.8-1.4 Activated Partial Thromboplast Time 29 24-35 SEC Sodium Level 138 135-145 MMOL/L Potassium Level 4.2 3.6-5.0 MMOL/L Chloride Level 107 98-107 MMOL/L Carbon Dioxide Level 22 21-32 MMOL/L Anion Gap 9 5-14 MMOL/L Blood Urea Nitrogen 10 7-18 MG/DL Creatinine 0.81 0.60-1.30 MG/DL Estimat Glomerular Filtration Rate 89 BUN/Creatinine Ratio 12 Glucose Level 163 H 70-105 MG/DL Calcium Level 9.1 8.5-10.1 MG/DL Corrected Calcium 8.9 8.5-10.1 MG/DL Magnesium Level 2.2 1.6-2.4 MG/DL Total Bilirubin 0.6 0.1-1.0 MG/DL Aspartate Amino Transf (AST/SGOT) 15 5-34 U/L Alanine Aminotransferase (ALT/SGPT) 17 0-55 U/L Alkaline Phosphatase 81 40-136 U/L Total Creatine Kinase 48 29-168 U/L Myoglobin 20.8 10.0-92.0 NG/ML Troponin I < 0.028 < 0.028 <0.028 NG/ML B-Type Natriuretic Peptide < 10.0 <100.0 PG/ML Total Protein 7.5 6.4-8.2 GM/DL Albumin 4.3 3.2-4.5 GM/DL (MARIA ALEJANDRA CLAROS MD) Vital Signs/I&O 09/15/21 09/15/21 13:20 16:34 Temp 36.2 36.2 Pulse 83 88 Resp 20 18 B/P (MAP) 125/66 (85) 109/64 Pulse Ox 100 100 O2 Delivery Room Air Room Air (MARIA ALEJANDRA CLAROS MD) Comment Sinus rhythm, 84 bpm, QRS duration 108 MS, QTc 459 MS EKG : Comment Sinus rhythm, 84 bpm, QRS duration 108 MS, QTc 459 MS (TRAMAINE SARGENT) Departure Communication (Admissions) Patient presents ED with right shoulder pain. Pain over the past week became worse yesterday with acute onset of sharp pain in her right arm. Patient denies pain with exertion. Heart score is 2. low risk for PE. She is not tachycardic and hypoxic. No recent travels or surgeries. EKG sinus rhythm. Initial troponin negative. 2-hour troponin negative. Symptoms over the past week worse since yesterday. Appears to be worse with movement of the right shoulder. She has tenderness to the right lateral neck. Coal Trimmer strength 5 out of 5. Neurova scular intact. No swelling, erythema or ecchymosis. No evidence of bruit. No JVD. Normal BNP. Chest x-ray negative for pneumonia, pneumothorax, pulmonary edema. Lab work was otherwise unremarkable. Was given dose of pain medication with improvement. Saw her primary care physician yesterday concerning for rotator cuff injury. On exam she does have some pain with empty can test of the right shoulder. Pain with internal and external rotation. Possible impingement syndrome versus tendinitis. Recommend anti-inflammatories at home. We will provide a few days worth of pain medication as needed. Patient will need to follow-up with primary care physician. Would likely benefit with some type of physical therapy versus further imaging as needed. She states she has been carrying her grandson around which may be associated to the pain. Return precautions were discussed. (TRAMAINE SARGENT) Impression Primary Impression: Shoulder pain Disposition: HOME, SELF-CARE Condition: Stable Departure-Patient Inst. Decision time for Depature: 16:19 (TRAMAINE SARGENT) Referrals: NO,LOCAL PHYSICIAN (PCP) Primary Care Physician SHANA BOOKER APRN (Family) Primary Care Physician MARTA MARY MD Patient Instructions: Shoulder Pain ED Scripts Hydrocodone/Acetaminophen (Hydrocodone-Acetamin 5-325 mg) 1 Each Tablet 1 TAB PO Q4H PRN for PAIN-MODERATE (5-7), #8 TAB Prov: TRAMAINE SARGENT 09/15/21 Methylprednisolone (Methylprednisolone Dose Pack) 4 Mg Tab.ds.pk 4 MG PO UD for 6 Days, #21 PKG PER DOSE PACK INSTRUCTIONS Prov: TRAMAINE SARGENT 09/15/21 Work/School Note: Work Release Form Date Seen in the Emergency Department: Sep 15, 2021 Return to Work: Sep 19, 2021 ATTENDING PHYSICIAN NOTE: I was physically present as attending physician in the emergency department during the care of this patient, but I was not directly involved in the decision making or delivery of care for this patient. (MARIA ALEJANDRA CLAROS MD) TRAMAINE SARGENT Sep 15, 2021 13:32 MARIA ALEJANDRA CLAROS MD Sep 17, 2021 02:57
[2021-09-15 13:36] LABS: BASOPHILS % (AUTO) 1 % (0-10); EOSINOPHILS # (AUTO) 0.2 10^3/uL (0.0-0.3); EOSINOPHILS % (AUTO) 2 % (0-10); HEMATOCRIT 42 % (35-52); HEMOGLOBIN 13.3 g/dL (11.5-16.0); LYMPHOCYTES # (AUTO) 3.3 10^3/uL (1.0-4.0); LYMPHOCYTES % (AUTO) 45 % (12-44); MEAN CORPUSCULAR HEMOGLOBIN 27 pg (25-34); MEAN CORPUSCULAR HGB CONC 31 g/dL (32-36); MEAN CORPUSCULAR VOLUME 87 fL (80-99); MEAN PLATELET VOLUME 10.5 fL (9.0-12.2); MONOCYTES # (AUTO) 0.4 10^3/uL (0.0-1.0); MONOCYTES % (AUTO) 6 % (0-12); NEUTROPHILS # (AUTO) 3.4 10^3/uL (1.8-7.8); NEUTROPHILS % (AUTO) 46 % (42-75); PLATELET COUNT 276 10^3/uL (130-400); WHITE BLOOD COUNT 7.3 10^3/uL (4.3-11.0)
[2021-09-15 13:45] LABS: ALBUMIN 4.3 GM/DL (3.2-4.5)
[2021-09-15 13:46] LABS: POTASSIUM 4.2 MMOL/L (3.6-5.0)
[2021-09-15 13:47] LABS: CALCIUM 9.1 MG/DL (8.5-10.1)
[2021-09-15 13:48] LABS: TOTAL PROTEIN 7.5 GM/DL (6.4-8.2)
[2021-09-15 13:50] LABS: BILIRUBIN,TOTAL 0.6 MG/DL (0.1-1.0); INR 0.9 (0.8-1.4); PROTHROMBIN TIME PATIENT 12.8 SEC (12.2-14.7)
[2021-09-15 13:52] LABS: CREATININE SERUM 0.81 MG/DL (0.60-1.30)
[2021-09-15 13:54] LABS: MAGNESIUM 2.2 MG/DL (1.6-2.4)
--- NOTE | 2021-09-15 14:34 | Diagnostic Imaging Report ---
HISTORY: Right shoulder pain. TECHNIQUE: Three views of the right shoulder. COMPARISON: None. FINDINGS: No acute fracture or dislocation is seen in the right shoulder. Alignment is normal. Joint spaces are preserved. IMPRESSION: No acute osseous abnormality is seen in the right shoulder. Dictated by: Dictated on workstation # [id number]
--- NOTE | 2021-09-15 14:34 | Diagnostic Imaging Report ---
PATIENT HISTORY: Chest pain. TECHNIQUE: Single frontal view of the chest. COMPARISON: 07/07/2016. FINDINGS: The lung volumes are normal. No focal consolidation is seen. No large pleural effusion or pneumothorax is seen. The cardiomediastinal silhouette is normal in size and contour. No acute osseous abnormality is seen. IMPRESSION: No acute pulmonary abnormality seen. Dictated by: Dictated on workstation # [id number]
[2021-09-15] MEDS ORDERED: ACHD5005 PO (16:20)
[2021-09-15] MEDS ORDERED: METH4TAB10 PO (16:20)
[2021-09-15 16:34] VITALS: BP 109/64
== END 2021-09-15 16:33 | disposition home or self-care (01) ==
LOC: EDUNIT# 13:18 → ER 13:20
DX: M25.511 Pain in right shoulder (principal); E03.9 Hypothyroidism, unspecified; F41.9 Anxiety disorder, unspecified; F31.9 Bipolar disorder, unspecified; Z79.890 Hormone replacement therapy; Z79.899 Other long term (current) drug therapy
CPT/HCPCS: 36415; 71045; 73030; 80053; 82550; 83735; 83874; 83880; 84484; 85025; 85610; 85730; 93005; 93041

== ENCOUNTER → 2022-02-02 | Outpatient (CLI) | payer BC ==
[~2022-02-02] MED LIST changes: +METH4TAB10 PO
--- NOTE | 2022-02-02 13:23 | Diagnostic Imaging Report ---
PROCEDURE: Pelvic comp/transvaginal sonogram. TECHNIQUE: Complete transabdominal and transvaginal pelvic ultrasound was performed. In addition, limited pelvic Doppler was performed. INDICATION: Abnormal uterine bleeding. FINDINGS: The uterus is anteverted measuring 7.6 x 4.6 x 5.8 cm. No myometrial mass is detected. There is an IUD well centered within the endometrial canal. The endometrium is 4 mm in thickness. The left ovary was not visualized due to bowel gas. The right ovary measures 2.1 x 1.6 x 1.8 cm. There is blood flow to the right ovary. No adnexal mass or free fluid is detected. IMPRESSION: 1. The IUD is well centered within the endometrial canal. 2. Nonvisualized left ovary. The study is otherwise unremarkable. Dictated by: Dictated on workstation # [id number]
== END ==
LOC: RAD 10:00
PROVIDERS: ATTEND Obstetrics & Gynecology
DX: N93.9 Abnormal uterine and vaginal bleeding, unspecified (principal); Z97.5 Presence of (intrauterine) contraceptive device
CPT/HCPCS: 76830; 76856

== ENCOUNTER 2022-03-15 05:30 | Outpatient (CLI) | payer BC ==
[~2022-03-15] VITALS: Ht 157.4 cm; Wt 122.7 kg
[2022-03-15] MEDS ORDERED: LORA10CA PO (14:02)
[2022-03-22] MEDS ORDERED: SIME80TA16 PO (07:32)
[2022-03-22] MEDS ORDERED: HYDR-34 PO (07:32)
[2022-03-22] MEDS ORDERED: IBUP-844 PO (07:32)
[2022-03-22] MEDS ORDERED: DOCU100C37 PO (07:32)
== END 2022-03-15 14:39 ==
LOC: PREOP 05:30
PROVIDERS: ATTEND Obstetrics & Gynecology
DX: Z01.818 Encounter for other preprocedural examination (principal); N92.0 Excessive and frequent menstruation with regular cycle; N94.6 Dysmenorrhea, unspecified; Z80.41 Family history of malignant neoplasm of ovary

== ENCOUNTER 2022-03-22 05:47 | Day surgery (SDC) | payer BC ==
[2022-03-22] VITALS (11 sets, daily range): BP systolic 119–164; BP diastolic 63–96
[~2022-03-22] VITALS: Ht 157.4 cm; Wt 122.7 kg
[~2022-03-22 05:47] MED LIST changes: +LORA10CA PO
[2022-03-22] MEDS ORDERED: metroNIDAZOLE 500MG/100ML IVPB 100 ML IV ONE (06:00)
[2022-03-22] MEDS ORDERED: LACTATED RINGERS 1,000 ML IV SCH ×2 (06:45→07:30)
[2022-03-22] MEDS: LACTATED RINGERS 1,000 ML IV PRN ×3 (06:46→09:33)
[2022-03-22] MEDS: ceFAZolin 2 GM IV Premixed 50 ML IV ONE ×2 (06:46→07:30)
[2022-03-22] MEDS ORDERED: BUPIVACAINE 0.25% 30 ML (SENSORCAINE) VIAL ONE (06:49)
[2022-03-22] MEDS ORDERED: proPOfol 200 MG/20 ML (DIPRIVAN) VIAL IV ONE (06:56)
[2022-03-22] MEDS ORDERED: fentaNYL INJ 100 MCG/2 ML AMP ONE (06:56)
[2022-03-22] MEDS ORDERED: ROCURONIUM 50 MG/5 ML (ZEMURON) VIAL IV ONE (06:56)
[2022-03-22] MEDS ORDERED: LIDOCAINE PF 2% 5 ML (XYLOCAINE) VIAL ONE (06:56)
[2022-03-22] MEDS ORDERED: MIDAZOLAM 2 MG/2 ML (VERSED) VIAL ONE (06:56)
[2022-03-22] MEDS ORDERED: ONDANSETRON 4 MG/2 ML (SDV) Z0FRAN ONE (06:56)
[2022-03-22 06:59] LABS: BASOPHILS % (AUTO) 1 % (0-10); EOSINOPHILS # (AUTO) 0.1 10^3/uL (0.0-0.3); EOSINOPHILS % (AUTO) 2 % (0-10); HEMATOCRIT 42 % (35-52); HEMOGLOBIN 13.6 g/dL (11.5-16.0); LYMPHOCYTES # (AUTO) 2.6 10^3/uL (1.0-4.0); LYMPHOCYTES % (AUTO) 38 % (12-44); MEAN CORPUSCULAR HEMOGLOBIN 27 pg (25-34); MEAN CORPUSCULAR HGB CONC 33 g/dL (32-36); MEAN CORPUSCULAR VOLUME 84 fL (80-99); MEAN PLATELET VOLUME 10.4 fL (9.0-12.2); MONOCYTES # (AUTO) 0.4 10^3/uL (0.0-1.0); MONOCYTES % (AUTO) 7 % (0-12); NEUTROPHILS # (AUTO) 3.5 10^3/uL (1.8-7.8); NEUTROPHILS % (AUTO) 52 % (42-75); PLATELET COUNT 303 10^3/uL (130-400); WHITE BLOOD COUNT 6.7 10^3/uL (4.3-11.0)
[2022-03-22] MEDS ORDERED: ONDANSETRON 4 MG/2 ML (SDV) Z0FRAN IV PRN (07:30)
[2022-03-22] MEDS ORDERED: ANTACID SUSP 30 ML UDC (MYLANTA) PO PRN (07:30)
[2022-03-22] MEDS ORDERED: CEPACOL SORE THROAT-COUGH LOZENGE MM PRN (07:30)
[2022-03-22] MEDS ORDERED: HYDROcodone/APAP 7.5 MG/325 MG (LORTAB, LORCET PLUS) TABLET PO PRN (07:30)
[2022-03-22] MEDS ORDERED: KETOROLAC 30 MG/ML VIAL IVP PRN (07:30)
[2022-03-22] MEDS ORDERED: SIMETHICONE 80 MG (MYLICON) CHEW PO PRN (07:30)
[2022-03-22] MEDS ORDERED: ZOLPIDEM 5 MG (AMBIEN) TAB PO PRN (07:30)
[2022-03-22] MEDS ORDERED: DOCUSATE SODIUM 100 MG (COLACE) CAP PO PRN (07:30)
--- NOTE | 2022-03-22 07:30 | Discharge Inst-Women's Service ---
Discharge Inst-Women's Serv Depart Medication/Instructions New, Converted or Re-Newed RX: Transmitted to Pharmacy Final Diagnosis PO RATLH Problems Reviewed?: Yes Consults/Follow Up Additional Follow Up: Yes Orders/Referrals Dr. Smith in 7-10 days in 8 weeks Activity Activity: Activity as Tolerated Driving Instructions: No Driving for 1 Week NO SMOKING: NO SMOKING Nothing Inside Vagina: No Douching, No [place], No Tampons Diet Discharge Diet: No Restrictions Symptoms to Report to : Bleeding Excessive, Pain Increased, Fever Over 101 Degrees F, Vaginal Bleeding Increase, Questions/Concerns For Any Problems or Questions: Contact Your Physician Skin/Wound Care Infection Signs and Symptoms: Increased Redness, Foul Odor of Wound, Increased Drainage, Skin Itchy or Has a Rash, Increased Swelling, Temperature Above 101 F Operative Area Clean and Dry: Keep Incision Clean/Dry Stitches/Jesse/Dermabond: Dermabond, Care of Stitches Bathing Instructions: KEISHA Bush DO Mar 22, 2022 07:30
[2022-03-22] MEDS ORDERED: DOCU100C37 PO (07:32)
[2022-03-22] MEDS ORDERED: SIME80TA16 PO (07:32)
[2022-03-22] MEDS ORDERED: IBUP-844 PO (07:32)
[2022-03-22] MEDS ORDERED: HYDR-34 PO (07:32)
[2022-03-22] MEDS ORDERED: HYDROmorphone 2 MG/ML VIAL (DILAUDID) ONE ×2 (08:24→09:16)
[2022-03-22] MEDS ORDERED: NEOSTIGMINE (BLOXIVERZ ) 1 MG/1ML 10 ML VIAL ONE (08:38)
[2022-03-22] MEDS ORDERED: KETOROLAC 30 MG/ML VIAL ONE (08:38)
[2022-03-22] MEDS ORDERED: GLYCOPYRROLATE 0.2 MG/ML (ROBINUL) 2 ML VIAL ONE (08:38)
[2022-03-22] MEDS ORDERED: SEVOFLURANE (ULTANE) 15 ML INHAL SOLN ONE (08:47)
[2022-03-22] MEDS ORDERED: ONDANSETRON 4 MG/2 ML (SDV) Z0FRAN IVP PRN (09:00)
[2022-03-22] MEDS ORDERED: HYDROmorphone 2 MG/ML VIAL (DILAUDID) IV ONE (09:00)
[2022-03-22] MEDS ORDERED: PROMETHAZINE INJ 25 MG/ML (PHENERGAN) AMP IVP ONE (09:00)
[2022-03-22] MEDS ORDERED: morphine INJ 10 MG/ML 1ML (SYR OR VIAL) IVP ONE (09:00)
[2022-03-22] MEDS ORDERED: MEPERIDINE (DEMEROL) INJ 50 MG/ML IVP ONE (09:00)
--- NOTE | 2022-03-22 10:27 | Anesthesia-General Post-Op ---
General Patient Condition Mental Status/LOC: Same as Preop Cardiovascular: Satisfactory Nausea/Vomiting: Absent Respiratory: Satisfactory Pain: Controlled Complications: Absent Post Op Complications Complications None Follow Up Care/Instructions Patient Instructions None needed. Anesthesia/Patient Condition Patient Condition Patient is doing well, no complaints, stable vital signs, no apparent adverse anesthesia problems. No complications reported per nursing. MARTA AHUMADA CRNA Mar 22, 2022 10:27
[2022-03-22] MEDS ORDERED: HYDROmorphone 2 MG/ML VIAL (DILAUDID) IV PRN (10:30)
--- NOTE | 2022-03-22 13:04 | OPERATIVE REPORT ---
DATE OF SERVICE: PREOPERATIVE DIAGNOSES: 1. A 52-year-old female with abnormal uterine bleeding. 2. Menorrhagia. 3. Family history of ovarian cancer. 4. BMI greater than 40. POSTOPERATIVE DIAGNOSES: 1. A 52-year-old female with abnormal uterine bleeding. 2. Menorrhagia. 3. Family history of ovarian cancer. 4. BMI greater than 40. PROCEDURE: Robotic-assisted total laparoscopic hysterectomy with bilateral salpingo-oophorectomy. SURGEON: Matt Smith DO FIREBOAT OPERATOR: Pia Langley DNP, was necessary for manipulation and retraction throughout the procedure. ANESTHESIA: General endotracheal. ESTIMATED BLOOD LOSS: Minimal. URINE OUTPUT: 75 mL clear at the end of the procedure. FLUIDS: 1800 mL lactated Ringer's solution. FINDINGS: A slightly bulky and hyperemic appearing uterus, grossly normal appearing bilateral fallopian tubes and ovaries, grossly normal-appearing external female genitalia and cervix. Filmy adhesions of the anterior cul-de-sac consistent with a history of prior . SPECIMEN SENT: Uterus, bilateral fallopian tubes and ovaries. INDICATIONS FOR PROCEDURE: This 52-year-old female is a patient who had sought care in my office for ongoing issues with heavy uncontrolled bleeding that occurred regularly, but very painful. She did have a ParaGard IUD. I discussed with the patient my ongoing concerns with this. She was not a candidate for hormone alleviation therapy with her bleeding, especially due to her weight and her risk factors. Risks of the procedure were discussed with the patient in detail including risk of bleeding, infection, damage to surrounding structures including, but not limited to bowel, bladder, ureter, kidneys, possible need for reoperation, postoperative complications that may occur, risk from anesthesia, recovery timeframe and even . After everything was discussed with the patient in detail, consent was obtained in the preoperative area, the patient was taken to the operating room. OPERATIVE REPORT IN DETAIL: Once in the operating room, general anesthesia was found to be adequate, she was placed in dorsal lithotomy position, prepped and draped in normal sterile fashion. Timeout was performed. A Coley catheter was placed using sterile technique. A weighted speculum inserted to the patient's vagina. Right angle retractor was used to visualize the cervix, which was grasped at 12 o'clock position using a long Allis clamp. I then gently sound the uterine cavity, depth was found to be 8 cm. I selected a Bertha uterine manipulator tip with 8 cm tip and a 3.5 cm colpotomy ring. The tip was advanced into the uterus and the balloon was deployed and the colpotomy ring was advanced around the vaginal fornix, at which point I removed all the other instruments from the patient's vagina, performed change of gloves, turned my attention to the abdomen where subcostally at the midclavicular line approximately one fingerbreadth I introduced the Veress needle until intraperitoneal placement was confirmed using saline drop test. An opening pressure of 5 mmHg was noted. I proceeded to max pressure of 15 mmHg using CO2 gas, at which point, I made a supraumbilical incision after infiltrating the skin using 0.25% Marcaine to make an 8 mm incision with a knife and directed a blunt laparoscopic 8 mm da Carlos camera trocar through the incision until intraperitoneal placement is confirmed using the da Carlos laparoscope. There was no evidence of damage from entry site. There was no evidence of damage in the left upper quadrant where the Veress entered and the Veress was removed under direct visualization of the laparoscope. I then had the patient placed in steep Trendelenburg where I am able to visualize all my pelvic anatomy as defined in my findings above. I then placed two lateral trocars using both 8 mm trocars. They are approximately 10 cm lateral to my supraumbilical trocar. Once both these trocars were in place, I bring in the da Carlos robot and docked in appropriate fashion placing the SynchroSeal device in left hand and monopolar nathaniel in the right hand. I performed the following dissection bilaterally. Starting at the infundibulopelvic ligament, I sealed and transected using the SynchroSeal device. I took this dissection down the margin of the fallopian tube until I encountered the round ligament, which I sealed and transected using the SynchroSeal device. I then took this down to the level of the lower uterine segment, at which point I the anterior and posterior leaflets of the broad ligament. Anterior leaflet dissection was taken around the anterior vaginal fornix and posterior leaflets was taken around the posterior vaginal fornix. I encounter some filmy adhesions in the anterior cul-de-sac and took these down bluntly and able to visualize the anterior fornix of the vaginal cuff. I then skeletonized the uterine vessels laterally, which I sealed and transected using the SynchroSeal device. I then created a colpotomy at 12 o'clock position using monopolar nathaniel and took this circumferentially around the vaginal fornix amputating the cervix away from the vagina. The entire specimen was then removed through the vagina. I then closed the vaginal cuff using 2-0 V-Loc in a running fashion, after which there was no active bleeding noted from any of my dissection planes. I then undocked the da Carlos robot and proceeded with the remainder of the case laparoscopically. I copiously irrigated the pelvis using normal saline. Once again, there was no active bleeding noted from any of my dissection planes. I placed Surgiflo hemostatic agent over all my planes of dissection. I then had the patient taken out of steep Trendelenburg where I am able to remove the lateral trocars under direct visualization of the laparoscope. The infraumbilical trocars left in place to release insufflation and introduced 10 mL of 0.25% Marcaine into peritoneal cavity for postoperative pain management. I then removed this trocar as well. The skin is reapproximated using 4-0 Monocryl interrupted subcuticular stitches. Dermabond was applied to the incisions and Band-Aids were placed over the incisions as well. Coley catheter was left in place. The patient tolerated the procedure well and sent to recovery area in stable condition. Lap and sponge counts were correct at the end of the procedure. Instrument counts correct as well. Two grams of Ancef and 500 mg of Flagyl were given preoperatively for infection prophylaxis. Job ID: [id number] DocumentID: [id number] Dictated Date: 03/22/2022 10:00:04 Outside Sales Professional Date: 03/22/2022 13:02:38 Dictated By: DO LUCIANA NELSON
[2022-03-27] MEDS ORDERED: IBUPROFEN 600 MG (MOTRIN) TAB PO PRN (07:30)
== END 2022-03-22 17:30 | disposition home or self-care (01) ==
LOC: SDC 05:47 → WS 09:17 → SDC 17:30
PROVIDERS: ATTEND Obstetrics & Gynecology
DX: N83.8 Other noninflammatory disorders of ovary, fallopian tube and broad ligament (principal); N73.6 Female pelvic peritoneal adhesions (postinfective); N94.5 Secondary dysmenorrhea; Z80.41 Family history of malignant neoplasm of ovary; E66.9 Obesity, unspecified; Z68.41 Body mass index [BMI] 40.0-44.9, adult
CPT/HCPCS: 36415; 84703; 85025; 86850; 86900; 86901; 87081

== ENCOUNTER → 2023-01-31 | Outpatient (CLI) | payer BC ==
[~2023-01-31] MED LIST changes: +DOCU100C37 PO; +IBUP-844 PO; +LEVO-55 PO; -LEVO500T81 PO; +SIME80TA16 PO
--- NOTE | 2023-02-02 09:33 | Diagnostic Imaging Report ---
Indication: Routine screening. Comparison is made with prior mammogram from 03/16/2016 and 03/04/2015. 2-D and 3-D bilateral screening mammography was performed with CAD. The current study was also evaluated with a Computer Aided Detection (CAD) system. Scattered fibroglandular densities are identified bilaterally. The parenchymal pattern is stable. No mass or malignant-appearing microcalcifications are seen. Occasional benign calcifications are noted. Axillae are unremarkable. IMPRESSION: BI-RADS Category 2 No mammographic features suspicious for malignancy are identified. ACR BI-RADS Category 2: Benign findings. Result letter will be mailed to the patient. Note: At least 10% of breast cancer is not imaged by mammography. Dictated by: Dictated on workstation # [id number]
== END ==
LOC: RAD 13:45
PROVIDERS: ATTEND Nurse Practitioner Family
DX: Z12.31 Encounter for screening mammogram for malignant neoplasm of breast (principal)
CPT/HCPCS: 77063; 77067